=== PATIENT | male | born 1960 | race Caucasian/White ===

== ENCOUNTER 2017-03-24 11:37 | Emergency (ER) | payer BC, OTHER ==
[2017-03-24] MEDS ORDERED: Ketorolac 60 MG/2 ML SDV IM ONE (11:49)
--- NOTE | 2017-03-24 12:52 | EDM.PDOC ---
ED HPI GENERAL MEDICAL PROBLEM - General Chief Complaint: Abdominal Pain Stated Complaint: RT SIDE HURTS Time Seen by Provider: 03/24/17 11:51 Source of Information: Reports: Patient History Limitations: Reports: No Limitations - History of Present Illness INITIAL COMMENTS - FREE TEXT/NARRATIVE: History of present illness: [56-year-old male comes in status post trip and fall landing on his right side and now with right-sided rib pain. Patient indicates he would desire to have them evaluated for potential fracture as the pain has gotten intermittently worse over the last 24 hours.] Review of systems: As per history of present illness and below otherwise all systems reviewed and negative. Past medical history: As per history of present illness and as reviewed below otherwise noncontributory. Surgical history: As per history of present illness and as reviewed below otherwise noncontributory. Social history: No reported history of drug or alcohol abuse. Family history: As per history of present illness and as reviewed below otherwise noncontributory. Physical exam: HEENT: Atraumatic, normocephalic, pupils reactive, negative for conjunctival pallor or scleral icterus, mucous membranes moist, throat clear, neck supple, nontender, trachea midline. Lungs: Clear to auscultation, breath sounds equal bilaterally, point tenderness to right side of chest wall at rib line exacerbated by range of motion of right arm as well as the palpation. Heart: S1S2, regular, negative for clicks, rubs, or JVD. Abdomen: Soft, nondistended, nontender. Negative for masses or hepatosplenomegaly. Negative for costovertebral tenderness. Pelvis: Stable nontender. Genitourinary: Deferred. Rectal: Deferred. Extremities: Atraumatic, negative for cords or calf pain. Neurovascular unremarkable. Neuro: Awake, alert, oriented. Cranial nerves II through XII unremarkable. Cerebellum unremarkable. Motor and sensory unremarkable throughout. Exam nonfocal. Diagnostics: [Chest x-ray with ribs on right] Therapeutics: [] Impression: [Contusion] Plan: [Alternate ice and heat refer to pain medicine, all the primary care] Definitive disposition and diagnosis as appropriate pending reevaluation and review of above. Right Chest Pain Score (Numeric/FACES): 10 - Related Data Allergies Allergy/AdvReac Type Severity Reaction Status Date / Time No Known Allergies Allergy Verified 11/25/15 18:46 Home Meds: Home Meds ALPRAZolam [Xanax] 1 tab PO TID PRN 04/28/15 [History] Citalopram [Citalopram HBr] 1 tab PO DAILY 04/28/15 [History] Levothyroxine 1 tab PO DAILY 04/28/15 [History] Quinapril HCl 1 tab PO DAILY 04/28/15 [History] guaiFENesin [Mucinex] 1 tab PO BID 04/28/15 [History] metFORMIN HCl [Metformin HCl] 1,000 mg PO BID 04/28/15 [History] Amiodarone [Cordarone] DAILY 03/24/17 [History] Apixaban [Eliquis] BID 03/24/17 [History] Insulin Glarg,Human.Rec.Analog [LantUS Solostar] 25 units DAILY 03/24/17 [ History] Liraglutide [Victoza] 1.2 mg DAILY 03/24/17 [History] Metoprolol Tartrate 03/24/17 [History] atorvaSTATin [Lipitor] 03/24/17 [History] Past Medical History HEENT History: Reports: None Cardiovascular History: Reports: Afib, High Cholesterol, Hypertension Respiratory History: Reports: None Gastrointestinal History: Reports: None Genitourinary History: Reports: None Musculoskeletal History: Reports: None Neurological History: Reports: None Psychiatric History: Reports: Anxiety Endocrine/Metabolic History: Reports: Diabetes, Type II, Hypothyroidism, Obesity /BMI 30+ Hematologic History: Reports: None Immunologic History: Reports: None Oncologic (Cancer) History: Reports: None Dermatologic History: Reports: None Social & Family History - Tobacco Use Smoking Status *Q: Never Smoker Years of Tobacco use: 20 Packs/Tins Daily: 0.1 - Recreational Drug Use Recreational Drug Use: Yes Recreational Drug Type: Reports: Other (see below) Other Recreational Drug Type: Rx for hydrocodone Recreational Drug Use Frequency: Rarely ED ROS GENERAL - Review of Systems Review Of Systems: See Below (See history of present illness) ED EXAM, GENERAL - Physical Exam Exam: See Below (See history of present illness) Course - Vital Signs Last Recorded V/S: Last Vital Signs Temp 36.8 C 03/24/17 11:49 Pulse 55 L 03/24/17 11:49 Resp 18 03/24/17 11:49 BP 114/47 L 03/24/17 11:49 Pulse Ox 94 L 03/24/17 11:49 - Orders/Labs/Meds Orders: Active Orders 24 hr Category Date Time Status Ribs 2V w Chest Rt [CR] Stat Exams 03/24/17 12:13 Taken Meds: Medications Discontinued Medications Generic Name Dose Route Start Last Admin Trade Name Lillian PRN Reason Stop Dose Admin Ketorolac Tromethamine 60 mg 03/24/17 11:49 Toradol IM 03/24/17 11:50 ONETIME ONE Departure - Departure Time of Disposition: 13:04 Disposition: Home, Self-Care 01 Condition: Good Clinical Impression: Chest wall pain - Discharge Information Referrals: PCP,None [Primary Care Provider] - Forms: ED Department Discharge Additional Instructions: The following information is given to patients seen in the emergency department who are being discharged to home. This information is to outline your options for follow-up care. We provide all patients seen in our emergency department with a follow-up referral. The need for follow-up, as well as the timing and circumstances, are variable depending upon the specifics of your emergency department visit. If you don't have a primary care physician on staff, we will provide you with a referral. We always advise you to contact your personal physician following an emergency department visit to inform them of the circumstance of the visit and for follow-up with them and/or the need for any referrals to a consulting specialist. The emergency department will also refer you to a specialist when appropriate. This referral assures that you have the opportunity for follow-up care with a specialist. All of these measure are taken in an effort to provide you with optimal care, which includes your follow-up. Under all circumstances we always encourage you to contact your private physician who remains a resource for coordinating your care. When calling for follow-up care, please make the office aware that this follow-up is from your recent emergency room visit. If for any reason you are refused follow-up, please contact the [facility] Emergency Department at and asked to speak to the emergency department charge nurse. Medication as directed Follow-up with PCP 1-2 days return to ED as needed as discussed - My Orders Last 24 Hours: My Active Orders 03/24/17 12:13 Ribs 2V w Chest Rt [CR] Stat - Assessment/Plan Last 24 Hours: My Active Orders 03/24/17 12:13 Ribs 2V w Chest Rt [CR] Stat
[2017-03-24 13:21] VITALS: BP 134/75
--- NOTE | 2017-03-25 19:24 | CR ---
EXAM DATE: 03/24/17 PATIENT'S AGE: 56 Patient: MIRA MASTERS Facility: [place], [place] Site . Site : 1960 Study: XRay Chest Right ribs [id number] 12:43:38 PM Ordering Physician: Doctor Alvarez Final Report: HISTORY: Rib pain and shortness of breath. Findings: Five views of the chest and right ribs are provided. Mildly diminished lung volumes are noted. The lungs are clear and there is no evidence for pleural effusion or pneumothorax. Cardiac silhouette size is mildly enlarged. No rib fracture is identified. Dictated by Stanley Rodriguez MD @ Mar 24 2017 12:49PM (Electronic Signature) Report Signed by Proxy. LILLIE
== END 2017-03-24 13:15 | disposition home or self-care (01) ==
LOC: MW.ED 11:37
DX: S20.211A Contusion of right front wall of thorax, initial encounter (principal); E78.00 Pure hypercholesterolemia, unspecified; I10 Essential (primary) hypertension; E11.9 Type 2 diabetes mellitus without complications; E66.9 Obesity, unspecified; Z79.4 Long term (current) use of insulin; Z79.84 Long term (current) use of oral hypoglycemic drugs; Z79.899 Other long term (current) drug therapy; W19.XXXA Unspecified fall, initial encounter
CPT/HCPCS: 71101; 96372; 99283; J1885; 99282